=== PATIENT | male | born 1970 | race Caucasian/White ===

== ENCOUNTER 2025-06-03 19:35 | Emergency (ER) | payer MEDICARE, MEDICAID, SELFPAY ==
--- OUTSIDE RECORDS SUMMARY | 2025-06-01 02:10 | XMS_ITS ---
Author Organization [facility] Address [address] [place] [address] Care Team Providers Care Spinning Bath Person Name Role Phone Leander Grace Unavailable [phone] Allergies Allergen (clinical drug ingredient) Drug/Non Drug Allergy documented on EMR Reaction Allergy Type Onset Date Status aspirin Aspirin swelling/anaphyl axis Drug Allergy Active Results Component Value Reference Range Notes Culture Urine [id number] Reviewed date:06/03/2025 07:41:30 AM Interpretation: Performing Lab: Notes/Report: Culture Urine Clemente KEVIN ECKERT Culture Urine t: Culture Urine Culture Urine Accessio [id number] Culture Urine n: Culture Urine Microbiology Culture Urine PROCEDURE: Culture U rine [] Culture Urine SOURCE: Urine BODY SITE: Culture Urine COLLECTED DATE/TIME: 06/01/2025 08:49 JOURNEYMAN LEVEL ACOUSTIC ANALYST RECEIVED DATE/TIME: 06/01/2025 18:46 JOURNEYMAN LEVEL ACOUSTIC ANALYST Culture Urine START DATE/TIME: 03/2025 18:46 JOURNEYMAN LEVEL ACOUSTIC ANALYST FREE TEXT SOURCE: Culture Urine FINAL REPORT Culture Urine Final Report [] Culture Urine Verified Date/Time: 06/03/2025 06:14 JOURNEYMAN LEVEL ACOUSTIC ANALYST Culture Urine > 10,000 cfu/ml mixe d superficial avel Culture Urine Multiple microorganisms present Culture Urine Probable contamination REASON FOR VISIT Strike Planning Applications referral for Balanitis, cath changed about a week ago, no fever or chills, JTL NEW MALE EXAM1 Medications Medication SIG (Take, Route, Frequency, Duration) Notes Start Date End Date Status Baclofen Active Atorvastatin Calcium Active Levothyroxine Sodium 175 MCG Tablet 1 tablet in the morning on an empty stomach Orally Once a day Active Pantoprazole Sodium 20 MG Tablet Delayed Release 1 tablet 1/2 to 1 hour before morning meal Orally Once a day Active Clopidogrel Bisulfate 75 MG Tablet 1 tablet Orally Once a day Active Gabapentin Active Social History Tobacco Use: Social History Observation Description Date Details (start date - stop date) Former Smoker NA - NA Social History Tobacco Use: Social Info Question Answer Notes Tobacco Control (Standard) Tobacco use: Former smoker Section Notes: Used tobacco quit at 37 years old chewed tobacco until Mar 2025 Denies Alcohol Denies Caffeine Problems Problem Type SNOMED Code ICD Code Onset Dates Problem Status W/U Status Risk Notes Problem Neurogenic bladder (952630270) Neurogenic bladder (N31.9) Active confirmed Vital Signs Temperature 98.1 degrees Fahrenheit 06/01/20 25 Blood pressure systolic 96 mm Hg 06/01/20 25 Blood pressure diastolic 64 mm Hg 025 Heart Rate 81 /min 06/01/2025 Height 70 in 06/01/2025 Weight 178 lbs 06/01/2025 BMI 25.54 kg/m2 06/01/2025 Height-cm 177.8 cm 06/01/2025 Weight-kg 80.74 kg 06/01/2025 Encounters Encounter Location Date Provider Diagnosis [facility] [address] [address] 06/01/2025 Leander Grace Unspecified symptoms and signs involving the genitourinary system R39.9 ; Neurogenic bladder N31.9 ; Urinary retention R33.9 and Balanitis N48.1 Assessments Encounter Date Diagnosis (ICD Code) Assessment Notes Treatment Notes Treatment Clinical Notes Section Notes 06/01/2025 Unspecified symptoms and signs involving the genitourinary system (ICD-10 - R39.9) 06/01/2025 Neurogenic bladder (ICD-10 - N31.9) 06/01/2025 Urinary retention (ICD-10 - R33.9) 06/01/2025 Balanitis (ICD-10 - N48.1) 06/01/[address] cystogram UDS and follow up. If bladder is atonic he will likely need suprapubic catheter. This was discussed with the patient. Use nystatin powder twice daily. Patient has some at home. Plan Of Treatment Treatment Notes Assessment Notes Other CYSTO with ct cystogram UDS and follow up. If bladder is atonic he will likely need suprapubic catheter. This was discussed with the patient. Use nystatin powder twice daily. Patient has some at home. Next Appt Details Provider Name:Leander levy, 06/28/2025 08:40:00 AM, [address], [address], [place], [address], Provider Name:Leander elvy, 06/30/2025 01:00:00 PM, [address], [address], [place], [address], Provider Name:Leander levy, 07/06/2025 10:30:00 AM, [address], [address], [place], [address], History and Physical Notes * HPI (History of Present Illness) Category Sub-Category Detail Notes Category Not es Provider Note Chief complaint is wanting to know why his urine looks like it does. He has had an indwelling catheter since 05/05/25. He was having straight cath every 3-4 hours. 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 It resulted in a spinal C2 injury. He had a fusion. this was at [facility]. No pelvic injuries. He states they think he will regain activity and walking. His symptoms were occurring while he was on Farxiga. He is diabetic. He was circumcised at . I have reviewed his referral documentation. Examination Category Sub-Category Detail Notes Category Not es General Examination GENERAL APPEARANCE: alert, in no d istress HEAD: normocephalic, atrau matic HEART: Regular rate and rhy thm, S1 S2 normal LUNGS: clear to auscultatio n bilaterally, no wheezes, rales, or rhonchi ABDOMEN: soft, nontender, non distended EXTREMITIES: no edema of bilatera l lower extremities. MALE GENITOURINARY: Penis: Normal phallu s. Mild balanitis. Unable to examine scrotum due to positioning in wheelchair. LYMPH NODES: No cervical lymphade nopathy. RECTAL: Normal anal sphincte r tone. No rectal or anal masses. The prostate is normal consistency. Prostate volume is ___cc. Progress Notes * Kevin ECKERT FrancisDOB:[birth year] (55 yo M)Acc No.[id number]:06/01/2025 Progress Notes Patient: Kevin Solitario Provider: Ivory Grace MD :1970 A ge:55 Y S ex:Male Date:06/01/2025 Address:[address] [id number] Check In:08:02 AM CSTCheck O ut:08:59 AM JOURNEYMAN LEVEL ACOUSTIC ANALYST Subjective: * Chief Complaints: * 1 . Strike Planning Applications referral for Balanitis. 2. Cath changed about a week ago, no fever or chills. 3. JTL NEW MALE EXAM1. * HPI: P khushbu Note: Chief complaint is wanting to know why his urine looks like it does. Alok del toro has had an indwelling catheter since 05/05/25. Alok del toro was having straight cath every 3-4 hours. 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 It resulted in a spinal C2 injury. Alok del toro had a fusion. t his was at [facility]. N o pelvic injuries. Alok del toro states they think he will regain activity and walking. His symptoms were occurring while he was on Farxiga. He is diabetic. He was circumcised at . I have reviewed his referral documentation. * ROS: G eneral - Multi System: Constitutional D enies, fever, chills. G enitourinary S ee HPI. * Medical History: * Surgical History: * Family History: F ather: alive, A-Fib. M other: , heart problemsDiabetesUrinary issuesBowel IssuesHypothyroidism. F amily History Verified.. * Social History: T obacco Use: T obacco Control (Standard) T obacco use: F ormer smoker S ocial History Verified. U sed tobacco quit at 37 years old chewed tobacco until Mar 2025 Denies Alcohol Denies Caffeine. * Medications: T aking Atorvastatin Calcium , Taking Baclofen , Taking Clopidogrel Bisulfate 75 MG Tablet 1 tablet Orally Once a day , Taking Gabapentin , Taking Levothyroxine Sodium 175 MCG Tablet 1 tablet in the morning on an empty stomach Orally Once a day , Taking Pantoprazole Sodium 20 MG Tablet Delayed Release 1 tablet 1/2 to 1 hour before morning meal Orally Once a day , Medication List reviewed and reconciled with the patient * Allergies: A spirin: swelling/anaphylaxis. Allergies Verified. Objective: * Vitals: H t: 70 in, Wt:178lbs, Wt-k.74 kg, BMI:25.54Index, Temp:98.1F, BP:96/64mm Hg, HR:81/min, Ht-cm: 177.8 cm. * Examination: G eneral Examination: GENERAL APPEARANCE: a lert, in no distress. HEAD: n ormocephalic, atraumatic. LYMPH NODES: N o cervical lymphadenopathy. HEART: R egular rate and rhythm, S1 S2 normal. LUNGS: c lear to auscultation bilaterally, no wheezes, rales, or rhonchi. ABDOMEN: s oft, nontender, nondistended. RECTAL: N ormal anal sphincter tone. No rectal or anal masses. The prostate is normal consistency. Prostate volume is ___cc. MALE GENITOURINARY: P jayden: Normal phallus. Mild balanitis. Unable to examine scrotum due to positioning in wheelchair. EXTREMITIES: n o edema of bilateral lower extremities..? Assessment: * Assessment: 1. N eurogenic bladder - N31.9 (Primary) 2 . U nspecified symptoms and signs involving the genitourinary system - R39.9 3 . U rinary retention - R33.9 4 . B alanitis - N48.1 Plan: * Treatment: 2. O thers Notes: CYSTO with ct cystogram UDS and follow up. If bladder is atonic he will likely need suprapubic catheter. This was discussed with the patient. Use nystatin powder twice daily. Patient has some at home. * Procedure Codes: 3 078F DIAST BP < 80 MM HG, 3074F SYST BP LT 130 MM HG Billing Information: * Visit Code: 78222 Office Visit, New Pt., Level 4. * Procedure Codes: 3078F DIAST BP < 80 MM HG. 3074F SYST BP LT 130 MM HG. * NEYMAN LEVEL ACOUSTIC ANALYST Sign off status: Completed true * Provider: Ivory Grace MD Date: 08/02/2024 Generated for Ottonieli melisa/Maame/eTransmitting on: 08/04/2024 08:10 PM JOURNEYMAN LEVEL ACOUSTIC ANALYST
--- OUTSIDE RECORDS SUMMARY | 2025-06-01 02:58 | XMS_ITS ---
Author Organization [facility] Address [address] [place] [address] Care Team Providers Care Mechanic Welder Truck Driver Name Role Phone Leander Grace Unavailable [phone] Encounters Encounter Location Date Provider Diagnosis [facility] [address] [place] [address] 06/01/2025 Leander Wise N48.1 Assessments Encounter Date Diagnosis (ICD Code) Assessment Notes Treatment Notes Treatment Clinical Notes Section Notes 06/01/2025 Billie (ICD-10 - N48.1) Plan Of Treatment Pending Test Test Name Order Date CT Cystogram Abdomen Pelvis w/o contrast -[id number] 06/01/2025 Next Appt Details Provider Name:Leander levy, 06/28/2025 08:40:00 AM, [address], [address], [place], [address], Provider Name:Leander levy, 06/30/2025 01:00:00 PM, [address], [place], [address], Provider Name:Leander levy, 07/06/2025 10:30:00 AM, [address], [place], [address], Progress Notes * Kevin ECKERT FrancisDOB:[birth year] (55 yo M)Acc No.[id number]:06/01/2025 Patient: Kevin SCRUGGS :1970 A ge:55 Y S ex:Male Address:[address] [place], [address] Assessment: * Assessment: 1. B alanitis - N48.1 Plan: * Treatment: * true * Date: Generated for Cristo vincent/Maame/Stefano on: 08/04/2024 08:10 PM ACID PUMP OPERATOR
--- OUTSIDE RECORDS SUMMARY | 2025-06-01 23:59 | XMS_ITS | Continuity of Care Document ---
Author Organization [facility] Address [address] [place] [address]- Care Team Providers Care Commercial Technician Name Role Phone None, None Primary Care Physician Unavailab le Encounter [facility] Financial Number [id number] Date(s): 06/01/25 - 06/01/25 [facility] [address] [place] [address]- [place] Encounter Diagnosis Unspecified symptoms and signs involving the genitourinary system(Final) - Discharge Disposition: Home:Self-Care Attending Physician: Leander Grace MD Admitting Physician: Leander Grace MD Encounter Type: Non Patient Treatment Plan Diagnostic Tests Pending * Culture Urine 06/01/25 Social History Social History Type Response Sex Male Sex Representation Male (finding) Patient Care team information Care Team Personnel Name: None , None Position: P4 Physician Member Role: Primary Care Physician Insurance Providers Guarantor name: [employer] Health Plan Information #: 1 Payer: MEDICARE A AND B Payer Identifier: [employer] Member Number: [id number] Group Number: Subscriber Identifier: [id number] Relationship to Subscriber: self Coverage Type: PRIVATE HEALTH INSURANCE Coverage Verification Date: 25 Telecom: Address: Health Plan Information #: 2 Payer: [place] Payer Identifier: Member Number: [id number] Group Number: Subscriber Identifier: [id number] Relationship to Subscriber: self Coverage Type: PRIVATE HEALTH INSURANCE Coverage Verification Date: 25 Telecom: Address:
[2025-06-03 19:37] VITALS: BP 148/77; PULSE 116; RESP 16; TEMP 36.7; O2SAT 98; BMI 25.5
--- OUTSIDE RECORDS SUMMARY | 2025-06-03 20:10 | XMS_ITS | Encounter Summary ---
Author Organization [facility] Address [address] [place] [address] Care Team Providers Care Aviation Boatswain'S Mate Name Role Phone Tanya Brown MD Primary Care Provider + [phone] Encounter Details Date Type Department Care Team (Late st Contact Info) Description 05/07/2025 Results Follow-Up [facility] Emergency Department [address] [place] [address] Lobo Ugarte RN URINE CULTURE Social History Tobacco Use Types Packs/Day Years Used Date Smoking Tobacco: Former Cigarettes Alcohol Use Standard Drinks/Week Comments Never 0 (1 standard drink = 0.6 oz pur e alcohol) Food Insecurity Answer Date Recorded Do you find you are eating l ess than you should because you can t pay for food? No 05/06/2025 Transportation Needs Answer Date Record ed Have you gone without health care because you didn t have a way to get there? Or worry about transportation for future doctor visits, pear picker medication, etc.? No 2024 Housing Stability Answer Date Recorded Do you worry you won t have a steady place to sleep or struggle to pay rent or mortgage? No 05/06/2025 Utility Needs Answer Date Recorded Do you have difficulty payin g for utility costs (electric, water or gas bills)? No 05/06/2025 Medication Needs Answer Date Recorded Have you skipped taking medi cation due to cost or worry you can t afford new medications? No 05/06/2025 Feeling Safe Answer Date Recorded Are you in a relationship wi th someone who hurts you emotionally and/or physically? 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
--- OUTSIDE RECORDS SUMMARY | 2025-06-03 20:10 | XMS_ITS | Clinical Summary ---
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 Active insulin glargine (LANTUS) 100 unit/mL pen syringe Inject by subcutaneous injection 80 units at bedtime . Active raNITIdine (ZANTAC) 150 mg tablet Take 150 mg by mouth 2 times daily. Active metoprolol tartrate (LOPRESSOR) 25 mg tablet Take 25 mg by mouth 2 times daily. Active isosorbide dinitrate (ISORDIL) 30 mg Tablet Take 30 mg by mouth daily. Active lisinopriL (PRINIVIL) 10 mg tablet Take 10 mg by mouth daily. 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 Active clopidogreL (PLAVIX) 75 mg Tablet Take 75 mg by mouth daily. Active metFORMIN (GLUCOPHAGE) 1,000 mg tablet Take 1,000 mg by mouth 2 times daily with meals. Active furosemide (LASIX) 80 mg tablet Take 80 mg by mouth 2 times daily. Active insulin aspart U-100 (NovoLOG) 100 unit/mL pen syringe Inject by subcutaneous injection Inject per sliding scale/ 76 units total daily . Active ranolazine (RANEXA) 1,000 mg Extended Release 12 hour tablet Take 1,000 mg by mouth every 12 hours. 9 Active cefpodoxime (VANTIN) 200 mg Tablet Take 1 Tablet (200 mg) by mouth every 12 hours for 7 days. 14 Tablet 05/13/20 Active Problems Problem Noted Date Diagnosed Date Type 2 diabetes mellitus with hyperglycemia 09/21 Encounters Date Type Department Care Team Description 05/11/2025 Telephone [facility] General and Trauma Surgery[address] [place] [address] Arlen Stewart NP TBSA 05/10/2025 External Device Data STL ABSTRACTION Provider, Abstract 05/10/2025 External Device Data STL ABSTRACTION Provider, Abstract 05/10/2025 External Device Data STL ABSTRACTION Provider, Abstract 05/09/2025 1:20 PM OBSTETRICIAN Office Visit [facility] Trauma [address] [place] [phone] Arlen Stewart NP Full thickness burn of left hand, unspecified site of hand, initial encounter (Primary Dx) 05/07/2025 Results Follow-Up [facility] Emergency Department [address] [place] [phone] Lobo Ugarte RN URINE CULTURE 05/06/2025 12:53 AM OBSTETRICIAN - 05/06/2025 4:00 AM [facility] Emergency [facility] Emergency Department [address] [place] [phone] Chandler Cole MD Urinary tract infection associated with indwelling urethral catheter, initial encounter (Primary Dx); Pressure injury of skin of sacral region, unspecified injury stage Discharge Disposition: Home or Self Care 05/06/2025 Travel from Last 3 Months Social History Tobacco Use Types Packs/Day Years Used Date Smoking Tobacco: Former Cigarettes Tobacco Cessation:Counseling Given: Not Answered Alcohol Use Standard Drinks/Week Comments Never 0 [...] worry about transportation for future doctor visits, order picker/assembler medication, etc.? No 2024 Housing Stability Answer [...] on file Legal Sex Male 1:12 PM OBSTETRICIAN Gender Identity Not on file Sexual Orientation Not on file Last Filed Vital Signs Vital Sign Reading Time Taken Comments Blood Pressure 128/70 05/09/2025 1:31 PM OBSTETRICIAN Pulse 65 05/06/2025 3:00 AM OBSTETRICIAN Temperature 36.6 C (97.9 F) 05/05/2025 11:48 PM OBSTETRICIAN Respiratory Rate 14 05/05/2025 11:48 PM OBSTETRICIAN Oxygen Saturation 99% 05/06/2025 3:00 AM OBSTETRICIAN Inhaled Oxygen Concentration - - Weight 76.7 kg (169 lb) 05/09/2025 1:31 PM OBSTETRICIAN Height 177.8 cm (5' 10 ) 05/09/2025 1:31 PM OBSTETRICIAN Body Mass Index 24.25 05/09/2025 1:31 PM OBSTETRICIAN Plan of Treatment Health Maintenance Due Date Last Done Comments DIABETES ANNUAL FOOT EXAM 1987 DIABETES ANNUAL RETINAL EXAM 1987 DIABETES HBA1C Q 6 MONTHS 1987 DIABETES MICROALBUMIN ANNUAL SCREEN 1987 LDL CHOLESTEROL ANNUAL 1987 DTAP/TDAP/TD VACCINES (1 - Tdap) 02/17/1988 HEPATITIS B VACCINES (1 of 3 - 19+ 3-dose series) 01/22 COLORECTAL SCREENING 2014 Colorectal Cancer Screening 2014 FIT-DNA Q 3 years 2014 FIT/FOBT Q 1 year 2014 Flex Sig/CT Colonography Q 5 years 2014 ZOSTER VACCINE (1 of 2) 2019 INFLUENZA VACCINE (#1) 2025 Procedures Procedure Name Priority Date/Time Associated Diagnosis Comments COMPREHENSIVE METABOLIC PANEL Stat 05/06/2025 2:21 AM OBSTETRICIAN CBC WITH DIFFERENTIAL Stat 05/06/2025 2:21 AM OBSTETRICIAN EXTRA TUBE (URINE ACUÑA) Stat 05/06/2025 2:09 AM OBSTETRICIAN URINALYSIS W/REFLEX MICROSCOPIC Stat 05/06/2025 2:09 AM OBSTETRICIAN URINE CULTURE Stat 05/06/2025 2:09 AM OBSTETRICIAN from Last 3 Months Results * (ABNORMAL) CBC WITH DIFFERENTIAL (05/06/2025 2:21 AM OBSTETRICIAN) WBC 8.0 4.8 - 10.8 K/uL 05/06/2025 2:37 AM [facility] RBC 3.88(L) 4.60 - 6.20 M/uL 05/06/2025 2:37 AM [facility] HEMOGLOBIN 11.0(L) 14.0 - 18.0 g/dL 05/06/2025 2:37 AM [facility] HEMATOCRIT 33.9(L) 41.0 - 53.0 % 05/06/2025 2:37 AM [facility] MCV 87.4 84.0 - 103.0 fL 05/06/2025 2:37 AM [facility] MCH 28.4 27.0 - 34.0 pg 05/06/2025 2:37 AM [facility] MCHC 32.4 30.0 - 35.0 g/dL 05/06/2025 2:37 AM [facility] PLATELETS 320 140 - 440 K/uL 05/06/2025 2:37 AM [facility] MPV 10.9 8.9 - 12.8 fL 05/06/2025 2:37 AM [facility] RDW 13.1 11.0 - 14.5 % 05/06/2025 2:37 AM [facility] RDW-STDEV 41.6 37.0 - 54.0 fL 05/06/2025 2:37 AM [facility] NEUTROPHILS 66 42 - 75 % 05/06/2025 2:37 AM [facility] LYMPHOCYTES 19(L) 24 - 44 % 05/06/2025 2:37 AM [facility] MONOCYTES 10 2 - 10 % 05/06/2025 2:37 AM [facility] EOSINOPHILS 3 0 - 7 % 05/06/2025 2:37 AM [facility] BASOPHILS 1 0 - 1 % 05/06/2025 2:37 AM [facility] IMMATURE GRANULOCYTES 0 0 - 2 % 05/06/2025 2:37 AM [facility] NEUTROPHIL ABSOLUTE 5.29 2.00 - 8.00 K/uL 05/06/2025 2:37 AM [facility] LYMPHOCYTE ABSOLUTE 1.54 1.20 - 4.00 K/uL 05/06/2025 2:37 AM [facility] MONOCYTE ABSOLUTE 0.77(H) 0.10 - 0.60 K/uL 05/06/2025 2:37 AM [facility] EOSINOPHIL ABSOLUTE 0.27 0.00 - 0.70 K/uL 05/06/2025 2:37 AM [facility] [employer] [facility] BASOPHILS ABSOLUTE 0.06 0.00 - 0.20 K/uL 05/06/2025 2:37 AM [facility] IMMATURE GRANULOCYTES ABSOLUTE 0.02 0.00 - 0.10 K/uL 05/06/2025 2:37 AM [facility] SMEAR REVIEWED: NA - Not Applicable 05/06/2025 2:37 AM [facility] Blood Venipuncture / Unknown 05/06/2025 2:21 AM OBSTETRICIAN 05/06/2025 2:30 AM OBSTETRICIAN us Chandler Cole MD HEMATOLOGY ORDERABLES Final R esult [facility] ERWIN # [id number] [address] [facility] [place] [address] * (ABNORMAL) COMPREHENSIVE METABOLIC PANEL (05/06/2025 2:21 AM OBSTETRICIAN) [facility] SODIUM 137 136 - 145 mmol/L 05/06/2025 3:04 AM [facility] POTASSIUM 3.7 3.5 - 5.1 mmol/L 05/06/2025 3:04 AM [facility] CHLORIDE 102 98 - 107 mmol/L 05/06/2025 3:04 AM [facility] CO2 24 22 - 29 mmol/L 05/06/2025 3:04 AM [facility] CALCIUM 8.7 8.6 - 10.0 mg/dL 05/06/2025 3:04 AM [facility] BUN 15 6 - 20 mg/dL 05/06/2025 3:04 AM [facility] CREATININE 0.52(L) 0.67 - 1.17 mg/dL 05/06/2025 3:04 AM [facility] GLUCOSE 218(H) 74 - 99 mg/dL 05/06/2025 3:04 AM [facility] TOTAL PROTEIN 6.7 6.4 - 8.3 g/dL 05/06/2025 3:04 AM [facility] ALBUMIN 3.8 3.5 - 5.2 g/dL 05/06/2025 3:04 AM [facility] BILIRUBIN TOTAL 0.3 0.0 - 1.0 mg/dL 05/06/2025 3:04 AM [facility] ALKALINE PHOSPHATASE 100 40 - 129 U/L 05/06/2025 3:04 AM [facility] AST 22 10 - 50 U/L 05/06/2025 3:04 AM [facility] ALT 41 <=50 U/L 05/06/2025 3:04 AM [facility] GFR >60 >=60 mL/min/1. 73 sq meter 05/06/2025 3:04 AM [facility] Comment:eGFR calculated with 2020 CKD-EPI equation. Vegetarian diet, extremely high or low muscle mass, and may affect results. Cystatin C with Glomerular Filtration Rate is a suitable alternative for these patients. ANION GAP 11 9 - 20 mmol/L 05/06/2025 3:04 AM [facility] Blood Venipuncture / Unknown 05/06/2025 2:21 AM OBSTETRICIAN 05/06/2025 2:31 AM OBSTETRICIAN us Chandler Cole MD CHEMISTRY ORDERABLES Final Re sult Performing Organization Address [facility] Co de Phone Number [facility] CLIA # [id number] [address] [address] * EXTRA TUBE (URINE ACUÑA) (05/06/2025 2:09 AM OBSTETRICIAN) Urine URINE SPECIMEN OBTAINED BY CLEAN CATCH PROCEDURE / Unknown Collection / Unknown 05/06/2025 2:09 AM OBSTETRICIAN 05/06/2025 2:11 AM OBSTETRICIAN Chandler Cole MD URINE ORDERABLES Final Result Performing Organization Address [facility] Co de Phone Number [facility] CLIA # [id number] [address] [address] * (ABNORMAL) URINALYSIS WITH REFLEX MICROSCOPIC (05/06/2025 2:09 AM OBSTETRICIAN) COLOR UA Yellow Pale to Dark Yellow 05/06/2025 2:32 AM [facility] CLARITY UA Turbid(A) Clear 05/06/2025 2:32 AM [facility] SPECIFIC GRAVITY UA 1.036(H) 1.003 - 1.035 05/06/2025 2:32 AM [facility] PH UA 6.0 5.0 - 8.0 05/06/2025 2:32 AM [facility] LEUKOCYTE ESTERASE UA 3+(A) Negative 05/06/2025 2:32 AM [facility] NITRITE UA Positive(A) Negative 05/06/2025 2:32 AM [facility] PROTEIN UA 1+(A) Negative 05/06/2025 2:32 AM [facility] GLUCOSE UA 3+(A) Negative 05/06/2025 2:32 AM [facility] KETONES UA Negative Negative 05/06/2025 2:32 AM [facility] UROBILINOGEN UA 3.0(A) <2.0 mg/dL 2:32 AM [facility] BILIRUBIN UA Negative Negative 05/06/2025 2:32 AM [facility] BLOOD UA 3+(A) Negative 05/06/2025 2:32 AM [facility] WBC UA >100(A) 0 - 2 /hpf 05/06/2025 2:32 AM [facility] RBC UA >100(A) 0 - 2 /hpf 05/06/2025 2:32 AM [facility] BACTERIA UA 4+(A) Negative /hpf 05/06/2025 2:32 AM [facility] EPITHELIAL CELLS, URINE 0-5 0 - 5 /hpf 05/06/2025 2:32 AM [facility] WBC CLUMPS Present(A) Absent 05/06/2025 2:32 AM [facility] Urine URINE SPECIMEN OBTAINED BY CLEAN CATCH PROCEDURE / Unknown Collection / Unknown 05/06/2025 2:09 AM OBSTETRICIAN 05/06/2025 2:11 AM OBSTETRICIAN us Chandler Cole MD URINE ORDERABLES Final Result [facility] CLIA # [id number] [id number] [place], [place] [address] * (ABNORMAL) URINE CULTURE (05/06/2025 2:09 AM OBSTETRICIAN) CULTURE KLEBSIELLA PNEUMONIAE(A) TAMIKO MCG/ML 05/07/2025 9:41 AM OBSTETRICIAN [facility] Urine URINE SPECIMEN OBTAINED BY CLEAN CATCH PROCEDURE / Unknown Collection / Unknown 05/06/2025 2:09 AM OBSTETRICIAN 05/06/2025 2:11 AM OBSTETRICIAN Narrative Organism Antibiotic Method Susceptibility Klebsiella pneumoniae CEFTRIAXONE TAMIKO MCG/ML <=0.25 mcg/mL: Susceptible Klebsiella pneumoniae GENTAMICIN TAMIKO MCG/ML <=1 mcg/mL: Susceptible Klebsiella pneumoniae CIPROFLOXACIN TAMIKO MCG/ML <=0.06 mcg/mL: Susceptible Klebsiella pneumoniae LEVOFLOXACIN TAMIKO MCG/ML <=0.12 mcg/mL: Susceptible Klebsiella pneumoniae TRIMETHOPRIM/ SULFAMETHOXAZOLE TAMIKO MCG/ML <=20 mcg/mL: Susceptible Klebsiella pneumoniae NITROFURANTOIN TAMIKO MCG/ML 32 mcg/mL: Susceptible Klebsiella pneumoniae AMPICILLIN TAMIKO MCG/ML 16 mcg/mL: Resistant Klebsiella pneumoniae AMPICILLIN/ SULBACTAM TAIMKO MCG/ML 4 mcg/mL: Susceptible Klebsiella pneumoniae PIPERACILLIN/ TAZOBACTAM TAMIKO MCG /ML <=4 mcg/mL: Susceptible Comment:Aminoglycosides shou ld not be used as monotherapy for infections outside the urinary tract. Consultation with an infectious diseases specialist is recommended. Chandler Cole MD MICROBIOLOGY - GENERAL ORDERA BLES Final Result [facility] CLIA # [id number] [address] [address] [place], [place] [address] from Last 3 Months Insurance MEDICAID [place] [employer] O DSNP Care Teams Wiping Cloth Cutter Relationship Specialty Start Date End Date Tanya Brown MD [address] [place] [address] PCP - General Family Practice 10/06/18
--- OUTSIDE RECORDS SUMMARY | 2025-06-03 20:10 | XMS_ITS | Patient Health Record ---
Author Organization [facility] Address [address] [place] [address] Care Team Providers Care Lobby Porter Name Role Phone Leander Grace Unavailable [phone] Allergies Allergen (clinical drug ingredient) Drug/Non Drug Allergy documented on EMR Reaction Allergy Type Onset Date Status aspirin Aspirin swelling/anaphyl axis Drug Allergy Active Results Component Value Reference Range Notes Culture Urine [id number] Reviewed date:06/03/2025 07:41:30 AM Interpretation: Performing Lab: Notes/Report: Culture Urine Clemente KEVIN ECKERT Culture Urine t: Culture Urine Culture Urine Accessio [id number] Culture Urine n: Culture Urine Microbiology Culture Urine PROCEDURE: Culture U rine [] Culture Urine SOURCE: Urine BODY SITE: Culture Urine COLLECTED DATE/TIME: 06/01/2025 08:49 MUSKRAT TRAPPER RECEIVED DATE/TIME: 06/01/2025 18:46 MUSKRAT TRAPPER Culture Urine START DATE/TIME: 03/2025 18:46 MUSKRAT TRAPPER FREE TEXT SOURCE: Culture Urine FINAL REPORT Culture Urine Final Report [] Culture Urine Verified Date/Time: 06/03/2025 06:14 MUSKRAT TRAPPER Culture Urine > 10,000 cfu/ml mixe d superficial avel Culture Urine Multiple microorganisms present Culture Urine Probable contamination Reason For Referral Reason Balanitis Diagnosis 1 Balanitis (N48.1) Referred Organization [facility] Referred Provider Leander Grace Referred Address [address],[place],[address],[place] Referred Provider Specialty Urology General Notes Liyah Galan 02/2025 10:16:02 AM CDT > Called patient and spoke with a relative,patient is currently in ICU and he will have to call us in 4-6 weeks to schedule an appt, Liyah Galan 04/18/2025 10:57:36 AM CDT > Tried to call patient and he was talking to someone else and I was saying hello. The patient hung up Referral Priority Routine Medications Medication SIG (Take, Route, Frequency, Duration) Notes Start Date End Date Status Baclofen Active Atorvastatin Calcium Active Levothyroxine Sodium 175 MCG Tablet 1 tablet in the morning on an empty stomach Orally Once a day Active Gabapentin Active Pantoprazole Sodium 20 MG Tablet Delayed Release 1 tablet 1/2 to 1 hour before morning meal Orally Once a day Active Clopidogrel Bisulfate 75 MG Tablet 1 tablet Orally Once a day Active Social History Tobacco Use: Social History [...] Problem Status W/U Status Risk Notes Problem Balanitis (24737667) Balanitis (N48.1) Active confirmed Problem Neurogenic bladder (099514291) Neurogenic bladder (N31.9) Active confirmed Vital Signs Heart Rate 81 /min 06/01/2025 Temperature 98.1 degrees Fahrenheit 06/01/2025 Height-cm 177.8 cm 06/01/2025 Blood pressure diastolic 64 mm Hg 06/01/2025 Weight-kg 80.74 kg 06/01/2025 Height 70 in 06/01/2025 Blood pressure systolic 96 mm Hg 06/01/2025 Weight 178 lbs 06/01/2025 BMI 25.54 kg/m2 06/01/2025 Encounters Encounter Location Date Provider Diagnosis [facility] [address] [place] [address] [place] [address] 06/01/2025 Leander Grace Unspecified symptoms and signs involving the genitourinary system R39.9 ; Neurogenic bladder N31.9 ; Urinary retention R33.9 and Balanitis N48.1 [facility] [address] [place] [address] [place] [address] 04/18/2025 Leander Grace [facility] [address] [place] [address] [place] [address] 03[facility]31[facility]20[facility] [address] [place] [address] 06/01/2025 Leander Wise N48.1 Assessments Encounter Date Diagnosis (ICD Code) Assessment Notes Treatment Notes Treatment Clinical Notes Section Notes 06/01/2025 Balanitis (ICD-10 - N48.1) 06/01/2025 Unspecified symptoms and signs involving the [...] has some at home. Plan Of Treatment Pending Test Test Name Order Date CT Cystogram Abdomen Pelvis w/o contrast -[id number] 06/01/2025 Next Appt Details Provider Name:Leander levy, 06/28/2025 08:40:00 AM, [address], [place], [address], Provider Name:Leander levy, 06/30/2025 01:00:00 PM, [address], [place], [address], Provider Name:Leander levy, 07/06/2025 10:30:00 AM, [address], [place], [address], Insurance Providers Payer Name Payer Address Payer Phone Subscriber Number Group Number Insured Name Patient Relationship to Insured Coverage Start Date Coverage End Date [place] [address] [place] [address] [id number] Kevin Eckert Self - patient is the insured [place] Medicaid [address] [place] [address] [id number] Kevin Eckert Self - patient is the insured Medical (General) History Medical History History ICD Code Reflux High Cholesterol [place] Hypothyroidism Attempted suicide Concussion Spinal cord Injury Surgical History Surgery Date(Month/Year) Neck surgery 7 heart stents CABG x 3 Appendectomy Knee Surgery left knee
--- NOTE | 2025-06-03 21:05 | W.ED.MALEGU ---
HPI - Male Genitourinary General: Chief complaint: Urogenital-Male Stated complaint: Cath blocked hasn't peed since 900 am Time Seen by Provider: 06/03/25 19:51 History of Present Illness: Patient is a 55-year-old male with history of spinal injury presenting with urinary catheter complications. Patient reports significant pain described as 'burning' associated with the catheter. The catheter appears to have been recently serviced with a change of the collection bag and tubing, but not the catheter itself. Patient reports decreased urine output since approximately 09:00 today. Visual inspection of the urine reveals fibrous material which was previously identified as bacterial colonization. Per patient report, previous medical advice was to not treat this colonization as treatment might cause more complications. Patient expresses significant discomfort and requests catheter replacement. Related Data Allergies Allergy/AdvReac Type Severity Reaction Status Date / Time aspirin Allergy ALGY-Anaphy Verified 06/03/25 19:49 laxis Physical Exam Const: COMMON NORMALS: no acute distress GENERAL APPEARANCE: cooperative; not ill appearing and not frail appearing HENMT: COMMON NORMALS: normocephalic, atraumatic and Normal external nose present HEAD & SCALP: normocephalic and atraumatic FACE & SINUS: normal facial exam and face symmetric NOSE: Normal external nose present Eye: COMMON NORMALS: Equal, round and reactive pupils present and EOMs intact bilaterally PUPIL: Yes Equal, round and reactive pupils present Neck/C-Spine: GENERAL: Yes trachea midline Chest: CHEST: Yes Symmetrical chest wall rise Resp: COMMON NORMALS: normal respiratory effort, No retractions, No use of accessory muscles and clear to auscultation bilaterally AUSCULTATION: clear to auscultation bilaterally Cardio: COMMON NORMALS: regular rate and regular rhythm RATE: regular rate RHYTHM: regular rhythm GI: INSPECTION: Yes abdominal distension PALPATION: Yes Firmness to palpation present (GI) and Yes Tenderness to palpation present (GI) : OTHER: Valente catheter in place. Minimal output nonbloody. Extremity: COMMON NORMALS: no pedal edema Neuro: MESSI COMA SCALE: document GCS findings [place] coma scale eye opening: Spontaneous [place] coma scale verbal response: Orientated Messi coma scale motor response: Obey commands [place] coma scale total score: 15 SENSORY EXAM: Yes extremities (intact) Psych: COMMON NORMALS: speech normal SPEECH: Yes normal speech Skin: COMMON NORMALS: no rashes or lesions noted GENERAL SKIN EXAM: no rashes or lesions noted Course Vital Signs: Vital signs: Vital Signs Temperature 98.1 F 06/03/25 19:37 Pulse Rate 116 H 06/03/25 19:37 Respiratory Rate 16 06/03/25 19:37 Blood Pressure 148/77 06/03/25 19:37 Pulse Oximetry 98 06/03/25 19:37 Oxygen Delivery Me thod Room Air 06/03/25 19:37 MDM - Male Medical Decision Making Patient is afebrile. His vitals are stable. Valente is replaced without complication. Purulent urine is observed by the nursing staff. Sent for urinalysis. Urinalysis shows hematuria with pyuria. The patient's urologist has told him if he is not symptomatic, not to treat urinary tract infections with antibiotics. He will call his urologist on Friday for follow-up advice and appointment. Urine will be cultured here. He knows to return for any fever, increasing pain, mental status changes, etc. He is stable for discharge otherwise. Lab Data Laboratory Results Urine Color Yellow (Yellow) 06/03/25:43 Urine Appearance Turbid (CLEAR) A 06/03/25 20:43 Urine pH 7.5 (5-7) 06/03/25:43 Ur Specific [place] 1.023 (1.005-1.030) 06/03/25 20:43 Urine Protein 2+ (Negative) A 06/03/25 20:43 Urine Glucose (UA) 2+ (Normal) H 06/03/25 20:43 Urine Ketones Negative (Negative) 06/03/25:43 Urine Blood 3+ (Negative) A 06/03/25:43 Urine Nitrate Positive (Negative) A 06/03/25 20:43 Urine Bilirubin Negative (Negative) 06/03/25 20:43 Urine Urobilinogen 0.2 mg/dL (Negative) 06/03/25 20:43 Ur Leukocyte Esterase 2+ (Negative) A 06/03/25 20:43 Urine RBC >100 /hpf (0-2) H 06/03/25 20:43 Urine WBC >100 /hpf (0-5) H 06/03/25 20:43 Ur Squamous Epith Cells 0-5 /hpf (0-5) 06/03/25 20:43 Amorphous Sediment Not Reportable 06/03/25 20:43 Urine Bacteria 4+ /hpf (NONE) H 06/03/25 20:43 Hyaline Casts 6.14 /lpf 06/03/25 20:43 No radiology studies performed this visit Discharge Plan Discharge Patient Disposition: Home Clinical Impression: Acute retention of urine, Complication, blocked Valente catheter Condition: Stable Discharge Orders: Discharge ED (Routine); Ordered 06/03/25 Ordered By: Jai Olvera Referrals: Johnson Solis PA [Primary Care Provider] Patient Instructions: Valente Catheter Placement and Care (ED), Opioid Safety, Pain Management, Patient Portal & Nalini Instructions Activity Restrictions/Additional Instructions: Return for any problems Print Language: Slovenian Coding Level of Care Code ED Manager Mortgage for Luna Talbot
[2025-06-03 21:07] LABS: Glucose Urine UA 2+ (Normal); Nitrate Urine Positive (Negative); Specific Gravity, Urine 1.023 (1.005-1.030)
[2025-06-03 21:13] LABS: Add Urine Microscopic? YES; Universal Test for UA Present (0)
== END 2025-06-03 21:48 | disposition home or self-care (01) ==
PROVIDERS: Physician Assistant; Emergency Provider Emergency Medicine; PCP Physician Assistant
DX: T83.091A Other mechanical complication of indwelling urethral catheter, initial encounter (principal); R33.8 Other retention of urine; X58.XXXA Exposure to other specified factors, initial encounter
CPT/HCPCS: 51702; 81001; 87077; 87086; 87186; 99283